=== PATIENT | female | born 1990 | race American Indian/Alaskan Native ===

== ENCOUNTER 2018-08-25 04:06 | Emergency (ER) | payer OTHER ==
[2018-08-25 04:06] VITALS: BMI 43.3
[2018-08-25 04:18] VITALS: O2SAT 99
[2018-08-25] MEDS ORDERED: Sodium Chloride 0.9% 1,000 ML IV ONE (04:22)
[2018-08-25 04:39] LABS: SQUAMOUS EPITHIAL 1 /hpf (0-5); URINE BILIRUBIN NEGATIVE (NEGATIVE); URINE BLOOD 3+ (NEGATIVE); URINE GLUCOSE (UA) NORMAL (Normal); URINE LEUKOCYTE ESTERASE TRACE Leu/uL (Negative); URINE PROTEIN NEGATIVE (NEGATIVE); URINE UROBILINOGEN NORMAL mg/dL (0.2-1.0)
[2018-08-25 04:41] LABS: URINE CLARITY SLIGHT-CLOUDY (Clear); URINE COLOR LIGHT RED (YELLOW)
[2018-08-25] MEDS ORDERED: Sodium Chloride 0.9% 1,000 ML ONE (04:51)
[2018-08-25 04:55] LABS: BASO % 0.3 % (0.0-2.0); EOS # 0.3 K/uL (0.0-0.7); EOS % 2.3 % (0.0-4.0); HEMOGLOBIN 11.7 g/dL (11.0-16.0); LYMPH # 2.2 K/uL (1.0-4.3); LYMPH % 17.2 % (20.0-40.0); MEAN CELL VOLUME 88.9 fL (81.0-99.0); MEAN CORPUSCULAR HEMOGLOBIN 28.6 pg (27.0-31.0); MEAN CORPUSCULAR HGB CONC 32.2 g/dL (33.0-37.0); MEAN PLATELET VOLUME 8.2 fL (7.2-11.7); MONO # 0.7 K/uL (0.0-0.8); MONO % 5.5 % (0.0-10.0); NEUT # 9.3 K/uL (1.8-7.0); NEUT % 74.7 % (50.0-75.0); RBC 4.09 Mil/uL (3.80-5.20); RED CELL DISTRIBUTION WIDTH 14.2 % (11.5-14.5); WHITE BLOOD COUNT 12.5 K/uL (4.8-10.8)
[2018-08-25 05:09] LABS: ALB/GLOB RATIO 1.3 (1.0-2.1); ALBUMIN 3.9 g/dL (3.5-5.0); ALT/SGPT 17 U/L (9-52); AST/SGOT 16 U/L (14-36); BLOOD UREA NITROGEN 5 mg/dL (7-17); GFR NON-AFRICAN AMERICAN > 60
--- NOTE | 2018-08-25 06:05 | C.PDOC ---
History Of Present Illness 27 year old female presents to the ED for evaluation of lower abdominal pain associated with vaginal bleeding. Patient thinks she is approximately 15 weeks . Patient unsure as to her last period was in the end of April. Patient denies fever, chills, nausea, vomit, diarrhea, vaginal discharge, back pain, dysuria, hematuria. Time Seen by Provider: 08/25/18 04:18 Chief Complaint (Nursing): Female Genitourinary History Per: Patient History/Exam Limitations: no limitations Onset/Duration Of Symptoms: Days Current Symptoms Are (Timing): Still Present Quality Of Discomfort: "Pain" Associated Symptoms: denies: Nausea, Vomiting, Diarrhea, Urinary Symptoms Recent travel outside of the [place]: No Additional History Per: Patient Abnormal Vaginal Bleeding: Yes Last Menstral Period: end April Past Medical History Reviewed: Historical Data, Nursing Documentation, Vital Signs Vital Signs: Last Vital Signs Temp 97.6 F 08/25/18 04:18 Pulse 99 H 08/25/18 04:18 Resp 18 08/25/18 04:18 BP 123/84 08/25/18 04:18 Pulse Ox 99 08/25/18 04:18 - Medical History PMH: No Chronic Diseases Surgical History: No Surg Hx Family History: States: Unknown Family Hx - Social History Hx Alcohol Use: No Hx Substance Use: No - Immunization History Hx Influenza Vaccination: No Hx Pneumococcal Vaccination: No Review Of Systems Constitutional: Negative for: Fever, Chills Cardiovascular: Negative for: Chest Pain Respiratory: Negative for: Shortness of Breath Gastrointestinal: Positive for: Abdominal Pain. Negative for: Nausea, Vomiting, Diarrhea Genitourinary: Positive for: Vaginal Bleeding. Negative for: Dysuria, Hematuria, Vaginal Discharge Musculoskeletal: Negative for: Back Pain Skin: Negative for: Rash Physical Exam - Physical Exam Appears: Non-toxic, No Acute Distress Skin: Normal Color, Warm, Dry Head: Atraumatic, Normacephalic Eye(s): bilateral: Normal Inspection Neck: Normal ROM, Supple Chest: Symmetrical Cardiovascular: Rhythm Regular Respiratory: Normal Breath Sounds, No Rales, No Rhonchi, No Wheezing Gastrointestinal/Abdominal: Soft, No Tenderness, No Guarding, No Rebound Extremity: Normal ROM, No Tenderness, No Swelling Neurological/Psych: Oriented x3, Normal Speech, Normal Cognition Gait: Steady ED Course And Treatment - Laboratory Results Result Diagrams: 08/25/18 04:51 12/25/18 04:51 O2 Sat by Pulse Oximetry: 99 (ON RA) Pulse Ox Interpretation: Normal Medical Decision Making Medical Decision Making: Plan: * Labs * UA Disposition - Disposition Disposition Time: 07:05 Condition: STABLE Forms: [facility] (Croatian) - Clinical Impression Clinical Impression: Threatened - PA / RDA / Resident Statement MD/DO has reviewed & agrees with the documentation as recorded. - Scribe Statement The provider has reviewed the documentation as recorded by the Scribe Bonifacio Armstrong All medical record entries made by the Scribe were at my direction and personally dictated by me. I have reviewed the chart and agree that the record accurately reflects my personal performance of the history, physical exam, medical decision making, and the department course for this patient. I have also personally directed, reviewed, and agree with the discharge instructions and disposition. Physician Patient Turnover Patient Signed Over To: Danya Adams Handoff Comments: Pending US and dispo
[2018-08-25 06:19] VITALS: BP 120/86; PULSE 84; RESP 14; TEMP 98
--- NOTE | 2018-08-25 09:14 | US ---
Date of service: 08/25/2018 PROCEDURE: OB Pelvic Ultrasound HISTORY: pelvic pain, vag bleeding LMP: This patient states sometime in April 2018. This may indicate a gestational age as developed as 20 weeks 6 days (assuming 04/01/2018 LMP). COMPARISON: None available. FINDINGS: UTERUS: Gestational sac: Single intrauterine gestation. Heart rate: 142.5 bpm. age (Ultrasound estimated): 14 weeks 1 day based on CRL mean 831 cm. Karen-gestational hemorrhage: None. Date of delivery (Ultrasound estimated) : 02/22/2019. No limbs are identified and there is trace amniotic fluid detected indicating severe oligohydramnios. Uterus measures 17.6 x 9.0 x 10.8 cm. Uterus is anteverted, appearing nonfocal throughout the myometrium. CERVIX: Measures 4.0 cm. Long and closed. No cervical abnormality seen. RIGHT OVARY: Measures 4.5 x 3.2 x 3.4 cm. No mass lesion. Normal flow. Corpus luteum cyst identified measuring 2.6 x 12.0 x 2.4 LEFT OVARY: Not identified. FREE FLUID: None. OTHER FINDINGS: None. IMPRESSION: Single viable intrauterine gestation is identified 14 weeks 1 day estimated gestational age by CRL mean. Trace amniotic fluid is identified at this time representing severe oligohydramnios. Further, no limbs are identified at this time suggesting severe anomaly. Further clinical correlation and diagnostic sonographic evaluation advised.
== END 2018-08-25 10:11 | disposition left against medical advice (07) ==
LOC: C.ER 04:06
DX: O20.0 Threatened abortion (principal); Z3A.15 15 weeks gestation of pregnancy
CPT/HCPCS: 76815; 80053; 81001; 84702; 85025; 86850; 86900; 96360; 99285; J7030